=== PATIENT | male | born 1975 | race Caucasian/White ===

== ENCOUNTER 2023-06-07 11:06 | Emergency (ER) | payer MEDICAID ==
[~2023-06-07] VITALS: Ht 172.7 cm; Wt 79.0 kg
[2023-06-07 11:15] VITALS: O2SAT 98
[2023-06-07 12:24] LABS: BASOPHILS % 0.7 % (0.0-2.0); HEMATOCRIT. 38.9 % (42.0-52.0); HEMOGLOBIN. 13.5 g/dL (14.0-18.0); LYMPHOCYTES % 32.3 % (20.0-50.0); MEAN CORPUSCULAR HGB CONC 34.8 g/dL (31.0-37.0); MEAN CORPUSCULAR VOLUME 89.3 fL (80.0-94.0); MEAN PLATELET VOLUME 7.4 fl (7.4-10.4); MONOCYTES % 11.4 % (2.0-8.0); NEUTROPHILS % 53.6 % (40.0-76.0); PLATELET 265 x1000/uL (130-400); RED BLOOD CELL COUNT 4.36 mill/uL (4.7-6.1); RED CELL DISTRIBUTION WIDTH 12.9 % (11.6-14.6); WHITE BLOOD COUNT 7.6 x1000/uL (4.5-11.0)
[2023-06-07 12:40] LABS: ALANINE AMINOTRANSFERASE 57 IU/L (10-49); ALBUMIN 3.8 g/dL (3.2-4.8); ASPARTATE AMINOTRANSFERASE 46 IU/L (<34); BILIRUBIN TOTAL 0.4 mg/dL (0.1-1.0); CALCIUM 8.5 mg/dL (8.7-10.4); CARBON DIOXIDE 20 mEq/L (21-32); CHLORIDE 103 mEq/L (98-107); GLUCOSE 99 mg/dL (70-105); POTASSIUM 4.3 mEq/L (3.5-5.1); PROTEIN TOTAL 8.2 g/dL (6.0-8.3); SODIUM 132 mEq/L (136-145); UREA NITROGEN BLOOD 13 mg/dL (9-23)
[2023-06-07] MEDS ORDERED: BENZ200C52 MT (13:39)
[2023-06-07] MEDS ORDERED: OMEP40CA20 MT (14:01)
[2023-06-07 14:21] VITALS: BP 128/91; PULSE 107; RESP 16; TEMP 98.9
== END 2023-06-07 14:52 | disposition home or self-care (01) ==
LOC: ER 11:06
DX: R05.9 Cough, unspecified (principal); R10.10 Upper abdominal pain, unspecified; Z88.2 Allergy status to sulfonamides
CPT/HCPCS: 36415; 71045; 74018; 80053; 85025; 99284

== ENCOUNTER 2023-07-22 07:03 | Emergency (ER) | payer MEDICAID ==
[~2023-07-22] VITALS: Ht 172.7 cm; Wt 79.0 kg
[~2023-07-22 07:03] MED LIST: BENZ200C52 MT; OMEP40CA20 MT
[2023-07-22] MEDS: ALBUTEROL (0.083%) 2.5MG/3ML NEB HHN STA (07:54)
[2023-07-22] MEDS: IPRATROPIUM BROMIDE (0.02%) 0.5MG/2.5ML NEB HHN STA (07:54)
[2023-07-22 07:55] VITALS: PULSE 110; RESP 20; O2SAT 92
[2023-07-22 07:55] LABS: BASOPHILS % 0.6 % (0.0-2.0); EOSINOPHILS % 3.1 % (0.0-5.0); HEMATOCRIT. 38.7 % (42.0-52.0); HEMOGLOBIN. 13.5 g/dL (14.0-18.0); LYMPHOCYTES % 43.5 % (20.0-50.0); MEAN CORPUSCULAR HEMOGLOBIN 32.4 pg (28.0-32.0); MEAN CORPUSCULAR HGB CONC 34.9 g/dL (31.0-37.0); MEAN CORPUSCULAR VOLUME 92.9 fL (80.0-94.0); MEAN PLATELET VOLUME 8.4 fl (7.4-10.4); MONOCYTES % 10.1 % (2.0-8.0); NEUTROPHILS % 42.7 % (40.0-76.0); PLATELET 226 x1000/uL (130-400); RED BLOOD CELL COUNT 4.16 mill/uL (4.7-6.1); RED CELL DISTRIBUTION WIDTH 15.3 % (11.6-14.6); WHITE BLOOD COUNT 6.6 x1000/uL (4.5-11.0)
[2023-07-22] MEDS ORDERED: BECL10.6 INH (08:21)
[2023-07-22 08:38] LABS: CHLORIDE 107 mEq/L (98-107); SODIUM 136 mEq/L (136-145)
[2023-07-22 08:39] LABS: CALCIUM 8.7 mg/dL (8.7-10.4); CARBON DIOXIDE 21 mEq/L (21-32)
[2023-07-22 08:44] LABS: GLUCOSE 129 mg/dL (70-105); UREA NITROGEN BLOOD 9 mg/dL (9-23)
[2023-07-22 08:45] LABS: TROPONIN I HIGH SENSITIVITY 5 ng/L (3.0-53)
[2023-07-22 09:40] VITALS: BP 117/73; PULSE 115; RESP 12; TEMP 97.9
== END 2023-07-22 09:45 | disposition home or self-care (01) ==
LOC: ER 07:03
DX: J45.909 Unspecified asthma, uncomplicated (principal); Z88.2 Allergy status to sulfonamides; Z98.890 Other specified postprocedural states
CPT/HCPCS: 80048; 85025; 84484; 36415; 71045; 94640; 93005; 99285; Z7610 ×6

== ENCOUNTER 2023-08-01 15:12 | Emergency (ER) | payer MEDICAID ==
[~2023-08-01] VITALS: Ht 172.7 cm; Wt 79.4 kg
[~2023-08-01 15:12] MED LIST changes: +BECL10.6 INH
[2023-08-01 15:27] VITALS: BP 132/95; PULSE 110; RESP 16; TEMP 98.6; O2SAT 94
[2023-08-01] MEDS ORDERED: ALBU6.7H15 INH (16:26)
[2023-08-01] MEDS ORDERED: BECL10.6 INH (16:26)
== END 2023-08-01 16:40 | disposition home or self-care (01) ==
LOC: ER 15:12
DX: J45.909 Unspecified asthma, uncomplicated (principal); Z88.2 Allergy status to sulfonamides; Z76.0 Encounter for issue of repeat prescription
CPT/HCPCS: 99281

== ENCOUNTER 2023-08-05 14:53 | Inpatient (IN) | payer MEDICAID ==
[~2023-08-05] VITALS: Ht 167.6 cm; Wt 74.8 kg
[~2023-08-05 14:53] MED LIST changes: +ALBU6.7H15 INH
[2023-08-05] MEDS: SODIUM CHLORIDE 0.9% 1000ML BAG (SEPSIS BOLUS) IV ONE (15:44)
[2023-08-05 15:58] LABS: BASOPHILS % 0.3 % (0.0-2.0); EOSINOPHILS % 1.7 % (0.0-5.0); HEMATOCRIT. 38.4 % (42.0-52.0); HEMOGLOBIN. 13.4 g/dL (14.0-18.0); LYMPHOCYTES % 28.1 % (20.0-50.0); MEAN CORPUSCULAR HEMOGLOBIN 32.2 pg (28.0-32.0); MEAN CORPUSCULAR HGB CONC 34.8 g/dL (31.0-37.0); MEAN CORPUSCULAR VOLUME 92.6 fL (80.0-94.0); MEAN PLATELET VOLUME 8.1 fl (7.4-10.4); MONOCYTES % 8.7 % (2.0-8.0); NEUTROPHILS % 61.2 % (40.0-76.0); PLATELET 256 x1000/uL (130-400); RED BLOOD CELL COUNT 4.15 mill/uL (4.7-6.1); WHITE BLOOD COUNT 8.2 x1000/uL (4.5-11.0)
[2023-08-05 16:00] LABS: CHLORIDE 101 mEq/L (98-107); POTASSIUM 4.2 mEq/L (3.5-5.1); SODIUM 133 mEq/L (136-145)
[2023-08-05 16:01] LABS: CALCIUM 8.6 mg/dL (8.7-10.4); CARBON DIOXIDE 20 mEq/L (21-32)
[2023-08-05 16:06] LABS: CREATININE 0.9 mg/dL (0.6-1.3); GLUCOSE 99 mg/dL (70-105); UREA NITROGEN BLOOD 12 mg/dL (9-23)
[2023-08-05 16:08] LABS: CREATINE KINASE 124 IU/L (46-171); LACTATE DEHYDROGENASE 480 IU/L (120-246)
[2023-08-05 16:09] LABS: TROPONIN I HIGH SENSITIVITY 5 ng/L (3.0-53)
[2023-08-05 16:25] LABS: D-DIMER 2.05 mg/L FEU (<0.50); INR 0.9; PROTHROMBIN TIME 10.6 sec (9.6-11.0)
[2023-08-05] MEDS: AZITHROMYCIN 500MG/250ML 250 ML IV SCH (16:55)
[2023-08-05 17:11] LABS: CLARITY URINE CLEAR (CLEAR); COLOR URINE YELLOW (YELLOW); GLUCOSE URINE NEGATIVE (NEGATIVE); KETONES URINE NEGATIVE (NEGATIVE); LEUKOCYTE ESTERASE URINE NEGATIVE (NEGATIVE); NITRITE URINE NEGATIVE (NEGATIVE); OCCULT BLOOD URINE NEGATIVE (NEGATIVE); PH URINE 6.5 (4.5-8.0); PROTEIN URINE 2+ (NEGATIVE); SPECIFIC GRAVITY URINE 1.016 (1.005-1.030)
[2023-08-05 17:49] LABS: BACTERIA URINE TRACE; RBC URINE NONE SEEN /hpf (0-2); SQUAMOUS EPITHELIAL CELL URINE RARE /lpf (RARE/1+)
[2023-08-05 17:50] LABS: WBC URINE NONE SEEN /hpf (0-2)
[2023-08-05 19:26] LABS: BG BASE EXCESS -4.6 mmol/L (-2.0-2.0); BG CARBOXYHEMOGLOBIN 0.2 % (0.5-1.5); BG DEOXYHEMOGLOBIN 6.3 % (0.0-5.0); BG FRACTION INSPIRED OXYGEN 36; BG HCO3 ACT 18.1 mmol/L (22.0-26.0); BG METHEMOGLOBIN 0.1 % (0.0-1.5); BG OXYGEN SATURATION 93.7 % (92.0-98.5); BG OXYHEMOGLOBIN 93.4 % (94.0-97.0); BG PH 7.443 (7.350-7.450); BG PO2 73.5 mmHg (75.0-100.0); BG SAMPLE SITE RIGHT RADIAL; BG TOTAL HEMOGLOBIN 13.1 g/dL (12.0-18.0); BG VENT MODE NASAL CANNULA
[2023-08-05] MEDS: IOHEXOL-350 100 ML BOTTLE ONE (19:42)
[2023-08-05 22:00] VITALS: BP 127/75; PULSE 126; RESP 20; TEMP 99
[2023-08-06] VITALS (8 sets, daily range): BP systolic 99–122; BP diastolic 66–102; PULSE 79–134; RESP 17–22; TEMP 97.5–101.1; O2SAT 95–97
[2023-08-06] MEDS ORDERED: CLONIDINE 0.1MG TABLET PO PRN (01:45)
[2023-08-06] MEDS ORDERED: ONDANSETRON HCL 4MG/2ML INJ IV PRN (01:45)
[2023-08-06] MEDS ORDERED: MAGNESIUM/ALUMINUM HYDROXIDE/SIMETHICONE 30ML UDC PO PRN (01:45)
[2023-08-06] MEDS ORDERED: IPRATROPIUM/ALBUTEROL 0.5-3(2.5)MG/3ML NEB HHN PRN (01:45)
[2023-08-06] MEDS: GUAIFENESIN 200MG/10ML SUGAR FREE UDC PO PRN (02:04)
[2023-08-06] MEDS: ACETAMINOPHEN 325MG TABLET PO PRN (02:07)
[2023-08-06 03:18] LABS: SODIUM URINE RANDOM 73 mEq/L
[2023-08-06] MEDS: BUDESONIDE 0.5MG/2ML NEB HHN SCH (03:30)
[2023-08-06] MEDS: SODIUM CHLORIDE 0.9% 1,000 ML IV ONE (04:52)
[2023-08-06] MEDS: DOCUSATE SODIUM 100MG CAPSULE PO PRN (05:37)
[2023-08-06 05:44] LABS: OSMOLALITY URINE 618 mOsm/kg (500-850)
[2023-08-06 05:47] LABS: CALCIUM 8.1 mg/dL (8.7-10.4); CARBON DIOXIDE 20 mEq/L (21-32); CHLORIDE 104 mEq/L (98-107); SODIUM 133 mEq/L (136-145)
[2023-08-06 05:53] LABS: CREATININE 1.2 mg/dL (0.6-1.3); GLUCOSE 90 mg/dL (70-105); IRON 18 ug/dL (65-175); UREA NITROGEN BLOOD 13 mg/dL (9-23)
[2023-08-06 05:55] LABS: TOTAL IRON BINDING CAPACITY 381 ug/dl (250-425)
[2023-08-06 06:03] LABS: FERRITIN 178 ng/mL (22-322)
[2023-08-06 06:04] LABS: FOLIC ACID (FOLATE) SERUM > 20.00 ng/mL (>5.38)
[2023-08-06 06:05] LABS: VITAMIN B12 SERUM 466 pg/mL (211-911)
[2023-08-06 06:40] LABS: BASOPHILS % 0.4 % (0.0-2.0); EOSINOPHILS % 0.3 % (0.0-5.0); HEMATOCRIT. 34.2 % (42.0-52.0); HEMOGLOBIN. 11.9 g/dL (14.0-18.0); LYMPHOCYTES % 28.7 % (20.0-50.0); MEAN CORPUSCULAR HEMOGLOBIN 32.2 pg (28.0-32.0); MEAN CORPUSCULAR HGB CONC 34.8 g/dL (31.0-37.0); MEAN CORPUSCULAR VOLUME 92.7 fL (80.0-94.0); MEAN PLATELET VOLUME 8.7 fl (7.4-10.4); MONOCYTES % 6.9 % (2.0-8.0); NEUTROPHILS % 63.7 % (40.0-76.0); PLATELET 231 x1000/uL (130-400); RED BLOOD CELL COUNT 3.69 mill/uL (4.7-6.1); RED CELL DISTRIBUTION WIDTH 15.2 % (11.6-14.6); WHITE BLOOD COUNT 10.5 x1000/uL (4.5-11.0)
[2023-08-06] MEDS: IPRATROPIUM/ALBUTEROL 0.5-3(2.5)MG/3ML NEB HHN SCH ×2 (08:41→21:04)
[2023-08-06] MEDS ORDERED: METHYLPREDNISOLONE SOD SUCC 125MG/2ML (ACT-O-VIAL) IV SCH (09:00)
[2023-08-06] MEDS: METHYLPREDNISOLONE SOD SUCC 125MG/2ML (ACT-O-VIAL) IV SCH ×2 (13:13→17:47)
[2023-08-06] MEDS: CEFTRIAXONE 2GM/50ML 50 ML IV ONE (16:22)
[2023-08-06] MEDS: AZITHROMYCIN 500MG/250ML 250 ML IV SCH (16:22)
[2023-08-06] MEDS: CEFTRIAXONE 2GM/50ML 50 ML IV SCH (16:23)
[2023-08-06] MEDS: METHYLPREDNISOLONE SOD SUCC 125MG/2ML (ACT-O-VIAL) IV ONE (16:23)
[2023-08-06] MEDS: SODIUM CHLORIDE 0.9% 1,000 ML IV SCH (16:25)
[2023-08-06 17:04] LABS: TRIGLYCERIDE 109 mg/dL (0-150)
[2023-08-06 17:05] LABS: LDL CHOLESTEROL 37 mg/dL (5-100)
[2023-08-06 17:06] LABS: CHOLESTEROL 81 mg/dL (<200); HDL CHOLESTEROL < 20 mg/dL (>55)
[2023-08-07] VITALS (11 sets, daily range): BP systolic 118–127; BP diastolic 65–96; PULSE 72–114; RESP 17–21; TEMP 97.3–98; O2SAT 90–97
[2023-08-07 07:06] LABS: BASOPHILS % 0.4 % (0.0-2.0); HEMATOCRIT. 30.4 % (42.0-52.0); HEMOGLOBIN. 10.6 g/dL (14.0-18.0); LYMPHOCYTES % 28.2 % (20.0-50.0); MEAN CORPUSCULAR HGB CONC 34.9 g/dL (31.0-37.0); MEAN CORPUSCULAR VOLUME 91.9 fL (80.0-94.0); MEAN PLATELET VOLUME 8.2 fl (7.4-10.4); MONOCYTES % 4.8 % (2.0-8.0); NEUTROPHILS % 66.6 % (40.0-76.0); PLATELET 233 x1000/uL (130-400); RED BLOOD CELL COUNT 3.31 mill/uL (4.7-6.1); WHITE BLOOD COUNT 3.7 x1000/uL (4.5-11.0)
[2023-08-07 07:17] LABS: CALCIUM 8.2 mg/dL (8.7-10.4); CARBON DIOXIDE 18 mEq/L (21-32); CHLORIDE 109 mEq/L (98-107); POTASSIUM 3.6 mEq/L (3.5-5.1); SODIUM 135 mEq/L (136-145)
[2023-08-07 07:22] LABS: T4 FREE 0.94 ng/dL (0.89-1.76); THYROID STIMULATING HORMONE 0.61 uIU/mL (0.55-4.78)
[2023-08-07 07:23] LABS: CREATININE 0.8 mg/dL (0.6-1.3); GLUCOSE 203 mg/dL (70-105); UREA NITROGEN BLOOD 17 mg/dL (9-23)
[2023-08-08] VITALS (10 sets, daily range): BP systolic 120–140; BP diastolic 68–112; PULSE 79–107; RESP 18–24; TEMP 97–97.7
[2023-08-08 07:23] LABS: HEMATOCRIT 31.1 % (42.0-52.0); HEMOGLOBIN 10.7 g/dL (14.0-18.0); MEAN CORPUSCULAR HEMOGLOBIN 31.7 pg (28.0-32.0); MEAN CORPUSCULAR HGB CONC 34.4 g/dL (31.0-37.0); MEAN CORPUSCULAR VOLUME 92.4 fL (80.0-94.0); PLATELET 264 x1000/uL (130-400); RED BLOOD CELL COUNT 3.37 mill/uL (4.7-6.1); RED CELL DISTRIBUTION WIDTH 15.5 % (11.6-14.6); WHITE BLOOD COUNT 9.4 x1000/uL (4.5-11.0)
[2023-08-08 07:34] LABS: CARBON DIOXIDE 17 mEq/L (21-32); CHLORIDE 114 mEq/L (98-107); SODIUM 140 mEq/L (136-145)
[2023-08-08 07:39] LABS: CALCIUM 9.3 mg/dL (8.7-10.4)
[2023-08-08 07:40] LABS: CREATININE 0.7 mg/dL (0.6-1.3); GLUCOSE 214 mg/dL (70-105); UREA NITROGEN BLOOD 17 mg/dL (9-23)
[2023-08-08 07:43] LABS: PHOSPHORUS 3.3 mg/dL (2.5-4.9)
[2023-08-08] MEDS: ENOXAPARIN 40MG/0.4ML SYR SUBCUT SCH (11:50)
[2023-08-08] MEDS: IPRATROPIUM/ALBUTEROL 0.5-3(2.5)MG/3ML NEB HHN ONE (16:45)
[2023-08-08] MEDS: METHYLPREDNISOLONE SOD SUCC 125MG/2ML (ACT-O-VIAL) IV SCH (21:06)
[2023-08-08] MEDS: FAMOTIDINE 20MG TABLET PO SCH (21:36)
[2023-08-09] VITALS: BP 145/92; PULSE 77; RESP 20; TEMP 97.6
[2023-08-09 00:33] VITALS: PULSE 79; RESP 17; O2SAT 96
[2023-08-09 04:00] VITALS: BP 142/82; PULSE 74; RESP 18; TEMP 97.3
[2023-08-09 06:34] LABS: CHLORIDE 113 mEq/L (98-107); POTASSIUM 4.1 mEq/L (3.5-5.1); SODIUM 140 mEq/L (136-145)
[2023-08-09 06:35] LABS: CALCIUM 9.5 mg/dL (8.7-10.4); CARBON DIOXIDE 17 mEq/L (21-32)
[2023-08-09 06:40] LABS: CREATININE 0.9 mg/dL (0.6-1.3); GLUCOSE 341 mg/dL (70-105)
[2023-08-09 06:41] LABS: UREA NITROGEN BLOOD 17 mg/dL (9-23)
[2023-08-09 06:43] LABS: HEMATOCRIT 31.5 % (42.0-52.0); HEMOGLOBIN 10.5 g/dL (14.0-18.0); MEAN CORPUSCULAR HEMOGLOBIN 31.6 pg (28.0-32.0); MEAN CORPUSCULAR HGB CONC 33.4 g/dL (31.0-37.0); MEAN CORPUSCULAR VOLUME 94.7 fL (80.0-94.0); PLATELET 298 x1000/uL (130-400); RED BLOOD CELL COUNT 3.32 mill/uL (4.7-6.1); RED CELL DISTRIBUTION WIDTH 15.5 % (11.6-14.6); WHITE BLOOD COUNT 9.6 x1000/uL (4.5-11.0)
[2023-08-09 08:00] VITALS: BP 166/107; PULSE 87; RESP 24; TEMP 98
[2023-08-09] MEDS ORDERED: P20 MT (09:07)
[2023-08-09] MEDS ORDERED: ALBU6.7H15 INH (09:07)
[2023-08-09] MEDS ORDERED: BECL10.6 INH (09:07)
[2023-08-09 09:38] VITALS: PULSE 76; RESP 16; O2SAT 98
[2023-08-09 10:50] VITALS: BP 146/99; PULSE 87; TEMP 98.1; O2SAT 95
== END 2023-08-09 11:50 | disposition home or self-care (01) | DRG 720 ==
LOC: ER 14:53 → EDBEDREQ 15:30 → 7WST 17:00 → EDBEDREQ 17:01 → ER 21:40
PROVIDERS: ADMIT Internal Medicine; ATTEND Internal Medicine
DX: A41.9 Sepsis, unspecified organism (principal); J96.01 Acute respiratory failure with hypoxia; E87.4 Mixed disorder of acid-base balance; E87.1 Hypo-osmolality and hyponatremia; J12.9 Viral pneumonia, unspecified; D70.9 Neutropenia, unspecified; K76.0 Fatty (change of) liver, not elsewhere classified; D64.9 Anemia, unspecified; E11.9 Type 2 diabetes mellitus without complications; Z20.822 Contact with and (suspected) exposure to COVID-19; E78.5 Hyperlipidemia, unspecified; Z79.899 Other long term (current) drug therapy; Z79.51 Long term (current) use of inhaled steroids; Z88.2 Allergy status to sulfonamides
CPT/HCPCS: 36415; 36600; 71045; 71275; 80048; 80061; 81003; 82375; 82550; 82607; 82728; 82746; 82805; 83036; 83540; 83550; 83605; 83615; 83735; 83880; 83930; 83935; 84100; 84300; 84439; 84443; 84484; 85025; 85027; 85379; 85651; 86850; 86900; 87426; 87804; 93005; 93970; 94640; 97165; 99291; J0456; J0696; J1650; J2919; J7030; J7626; Q9967

== ENCOUNTER 2023-08-11 12:26 | Emergency (ER) | payer MEDICAID ==
[~2023-08-11] VITALS: Ht 180.3 cm; Wt 91.0 kg
[~2023-08-11 12:26] MED LIST changes: +P20 MT
[2023-08-11 12:28] VITALS: O2SAT 89
[2023-08-11] MEDS ORDERED: CEFEPIME 1GM IN DEXT 5% 50ML IV ONE (12:45)
[2023-08-11 14:09] LABS: HEMATOCRIT. 36.9 % (42.0-52.0); HEMOGLOBIN. 12.5 g/dL (14.0-18.0); MEAN CORPUSCULAR HEMOGLOBIN 30.8 pg (28.0-32.0); MEAN CORPUSCULAR HGB CONC 33.9 g/dL (31.0-37.0); MEAN PLATELET VOLUME 8.2 fl (7.4-10.4); PLATELET 326 x1000/uL (130-400); RED BLOOD CELL COUNT 4.05 mill/uL (4.7-6.1); RED CELL DISTRIBUTION WIDTH 14.7 % (11.6-14.6); WHITE BLOOD COUNT 12.3 x1000/uL (4.5-11.0)
[2023-08-11 14:11] LABS: DIFFERENTIAL COMMENT 1
[2023-08-11 14:15] LABS: CHLORIDE 106 mEq/L (98-107); POTASSIUM 3.3 mEq/L (3.5-5.1); SODIUM 135 mEq/L (136-145)
[2023-08-11 14:16] LABS: CALCIUM 8.4 mg/dL (8.7-10.4); CARBON DIOXIDE 19 mEq/L (21-32)
[2023-08-11 14:18] LABS: PROTHROMBIN TIME 11.3 sec (9.6-11.0)
[2023-08-11 14:21] LABS: CREATININE 0.9 mg/dL (0.6-1.3); TROPONIN I HIGH SENSITIVITY 7 ng/L (3.0-53); UREA NITROGEN BLOOD 16 mg/dL (9-23)
[2023-08-11] MEDS: SODIUM CHLORIDE 0.9% 1000ML BAG (SEPSIS BOLUS) IV ONE (14:22)
[2023-08-11] MEDS: CEFEPIME 1GM/50ML 50 ML IV SCH (14:22)
[2023-08-11 14:29] LABS: GLUCOSE 144 mg/dL (70-105)
[2023-08-11 14:42] LABS: PLATELET ESTIMATE NORMAL
[2023-08-11] MEDS: ACETAMINOPHEN 325MG TABLET PO ONE (15:04)
[2023-08-11 15:17] LABS: CLARITY URINE CLEAR (CLEAR); COLOR URINE DARK YELLOW (YELLOW); GLUCOSE URINE NEGATIVE (NEGATIVE); KETONES URINE NEGATIVE (NEGATIVE); LEUKOCYTE ESTERASE URINE NEGATIVE (NEGATIVE); NITRITE URINE NEGATIVE (NEGATIVE); OCCULT BLOOD URINE TRACE (NEGATIVE); PH URINE 6.5 (4.5-8.0); PROTEIN URINE 2+ (NEGATIVE); SPECIFIC GRAVITY URINE 1.022 (1.005-1.030)
[2023-08-11 15:48] LABS: BACTERIA URINE FEW; RBC URINE NONE SEEN /hpf (0-2); SQUAMOUS EPITHELIAL CELL URINE RARE /lpf (RARE/1+); YEAST URINE RARE
[2023-08-11 16:25] VITALS: BP 127/84; PULSE 119; RESP 22; TEMP 98.5
[2023-08-11] MEDS: VANCOMYCIN 1G PREMIX 200 ML IV ONE (16:36)
[2023-08-11 17:28] LABS: TROPONIN I HIGH SENSITIVITY 10 ng/L (3.0-53)
== END 2023-08-11 17:46 | disposition left against medical advice (07) ==
LOC: ER 12:26 → CANBEDREQ 08-13 03:31
DX: J18.8 Other pneumonia, unspecified organism (principal); R00.0 Tachycardia, unspecified; R06.82 Tachypnea, not elsewhere classified; Z88.2 Allergy status to sulfonamides; Z98.890 Other specified postprocedural states
CPT/HCPCS: 80048; 81003; 83605; 85025; 85610; 87040; 87086; 84484; 36415; 84145; 71045; 93005; 96367; 96365; 99285; J0692; J3370; J7030; Z7610 ×3

== ENCOUNTER 2023-09-11 14:39 | Emergency (ER) | payer MEDICAID ==
[~2023-09-11] VITALS: Ht 172.7 cm; Wt 79.5 kg
[2023-09-11 14:41] VITALS: O2SAT 98
[2023-09-11] MEDS ORDERED: FAMO-135 MT (16:31)
[2023-09-11] MEDS ORDERED: FLUC200T51 MT (16:31)
[2023-09-11] MEDS: FLUCONAZOLE 100MG TABLET PO ONE (16:40)
[2023-09-11 16:41] VITALS: BP 128/83; PULSE 82; RESP 18; TEMP 98.9
== END 2023-09-11 16:50 | disposition home or self-care (01) ==
LOC: ER 14:39
DX: B37.81 Candidal esophagitis (principal); Z88.2 Allergy status to sulfonamides; Z98.890 Other specified postprocedural states
CPT/HCPCS: 99283

== ENCOUNTER 2024-04-02 12:09 | Emergency (ER) | payer MEDICAID ==
[~2024-04-02] VITALS: Ht 172.7 cm; Wt 95.7 kg
[~2024-04-02 12:09] MED LIST changes: +FAMO-135 MT; +FLUC200T51 MT
[2024-04-02 12:48] VITALS: O2SAT 97
[2024-04-02] MEDS: IBUPROFEN 400MG TABLET PO ONE (13:39)
[2024-04-02] MEDS ORDERED: CEPH500C2 MT (14:44)
[2024-04-02] MEDS ORDERED: BENZ150C8 MT (14:45)
[2024-04-02 15:55] VITALS: BP 150/86; PULSE 98; RESP 16; TEMP 36.9; O2SAT 97
== END 2024-04-02 16:00 | disposition home or self-care (01) ==
LOC: ER 12:09
DX: R05.9 Cough, unspecified (principal); E11.9 Type 2 diabetes mellitus without complications; Z79.51 Long term (current) use of inhaled steroids; Z79.899 Other long term (current) drug therapy; Z88.2 Allergy status to sulfonamides
CPT/HCPCS: 71045; 99283